=== PATIENT | male | born 1960 | race Hispanic/Latino ===

== ENCOUNTER 2021-11-11 14:20 | Emergency (ER) | payer BC, OTHER ==
[~2021-11-11] VITALS: Ht 172.7 cm; Wt 99.8 kg
[2021-11-11 15:15] VITALS: BP 162/76
[2021-11-11] MEDS ORDERED: TRAM50TA2 PO (15:28)
[2021-11-11] MEDS ORDERED: IBUP-2070 PO (15:28)
[2021-11-11] MEDS ORDERED: CYCL10TA16 PO (15:28)
[2021-11-11] MEDS ORDERED: ONDA4TAB10 PO (15:28)
[2021-11-11] MEDS ORDERED: PRED20TA3 PO (15:28)
[2021-11-11] MEDS ORDERED: PREDNISONE 20 MG TABLET PO ONE (15:30)
[2021-11-11] MEDS ORDERED: ORPHENADRINE CITRATE 30 MG/ML ML IM ONE (15:30)
[2021-11-11] MEDS ORDERED: KETOROLAC 30MG VIAL (30MG/ML) IM ONE (15:30)
== END 2021-11-11 15:54 | disposition home or self-care (01) ==
LOC: EDH 14:20
DX: M54.42 Lumbago with sciatica, left side (principal); R20.2 Paresthesia of skin; Z79.1 Long term (current) use of non-steroidal anti-inflammatories (NSAID); Z79.52 Long term (current) use of systemic steroids; Z90.49 Acquired absence of other specified parts of digestive tract
CPT/HCPCS: 96372 ×2; 99284; J1885; J2360